=== PATIENT | male | born 1965 | race Two or more races ===

== ENCOUNTER 2021-09-30 19:16 | Emergency (ER) | payer OTHER ==
[~2021-09-30] VITALS: Ht 170.2 cm; Wt 82.0 kg
[2021-09-30 19:46] LABS: BASO # 0.1 x10^3/uL (0.0-0.2); BASO % 2 % (0-3); EOS % 1 % (0-3); HEMATOCRIT 48.1 % (39.0-53.0); HEMOGLOBIN 16.4 g/dL (13.0-17.5); LYMPH # 2.3 x10^3/uL (1.0-4.8); LYMPH % 32 % (24-48); MEAN CORPUSCULAR HEMOGLOBIN 32 pg (25-35); MEAN CORPUSCULAR HGB CONC 34 g/dL (31-37); MEAN CORPUSCULAR VOLUME 94 fL (79-100); MONO # 0.5 x10^3/uL (0.0-1.1); MONO % 8 % (0-9); NEUT # 4.1 x10^3/uL (1.8-7.7); NEUT % 58 % (31-73); PLATELET COUNT 322 x10^3/uL (140-400); RED BLOOD COUNT 5.11 x10^6/uL (4.30-5.70); RED CELL DISTRIBUTION WIDTH 13.7 % (11.5-14.5)
[2021-09-30 19:58] LABS: CALCIUM 9.3 mg/dL (8.5-10.1); GFR 77.6; POTASSIUM 4.2 mmol/L (3.5-5.1)
[2021-09-30] MEDS ORDERED: IV NORMAL SALINE 1000ML BAG 1,000 ML IV ONE (20:00)
[2021-09-30 20:02] LABS: ACETAMIN < 2 mcg/ml (10-30); ETHANOL 166 mg/dL (0-10); SALIC 2.1 mg/dL (2.8-20.0)
[2021-09-30 20:04] LABS: ALBUMIN 4.4 g/dL (3.4-5.0); TOTAL BILIRUBIN 0.7 mg/dL (0.2-1.0); TOTAL PROTEIN 8.6 g/dL (6.4-8.2)
[2021-09-30] MEDS ORDERED: MULTIVIT INFUSN,ADULT 4,VIT K 10 ML, THIAMINE INJ 100 MG, FOLIC ACID INJ 1 MG in IV NOR... IV ONE (20:30)
--- NOTE | 2021-09-30 22:44 | PHYS DOC ---
Past Medical History Past Medical History: Alcoholism, Depression (NACHO CANTU CONVERSION DEVELOPER) Past Surgical History: Other Additional Past Surgical Histo: POOR HISTORIAN (NACHO CANTU CONVERSION DEVELOPER) Smoking Status: Current Every Day Smoker Alcohol Use: Heavy (PEPENACHO CONVERSION DEVELOPER) General Adult EDM: Chief Complaint: WITHDRAWL HPI: HPI: Patient is a 56 year old male with history of alcoholism, depression presenting to the ED today to be evaluated for alcohol withdrawal. Patient was at [facility], he developed withdrawal symptoms and was sent to the ED. He states he drinks he avily and will not give information on how much he drinks and when he last drank. He states he does not want to go back to [facility] he wants to go home. Denies any suicidal homicidal ideations (NACHO CANTU CONVERSION DEVELOPER) Review of Systems: Review of Systems: Constitutional: Denies fever or chills. [] Eyes: Denies change in visual acuity. [] HENT: Denies nasal congestion or sore throat. [] Respiratory: Denies cough or shortness of breath. [] Cardiovascular: Denies chest pain or edema. [] GI: Denies abdominal pain, nausea, vomiting, bloody stools or diarrhea. [] : Denies dysuria. [] Musculoskeletal: Denies back pain or joint pain. [] Integument: Denies rash. [] Neurologic: Denies headache, focal weakness or sensory changes. [] Psychiatric: Reports alcohol use and withdrawal symptoms (NACHO CANTU CONVERSION DEVELOPER) Heart Score: C/O Chest Pain: N/A Risk Factors: Risk Factors: DM, Current or recent (<one month) smoker, HTN, HLP, family history of CAD, obesity. Risk Scores: Score 0 - 3: 2.5% MACE over next 6 weeks - Discharge Home Score 4 - 6: 20.3% MACE over next 6 weeks - Admit for Clinical Observation Score 7 - 10: 72.7% MACE over next 6 weeks - Early Invasive Strategies (NACHO CANTU CONVERSION DEVELOPER) Current Medications: Current Medications Medications (Trade) Dose Ordered Sig/Jarad Start Time Stop Time Status Last Admin Dose Admin Lorazepam (Ativan Inj) 1 mg 1X ONCE 09/30/21 20:00 09/30/21 20:01 DC 09/30/21 20:01 1 MG Multivitamins 10 ml/Thiamine HCl 100 mg/Folic Acid 1 mg/Sodium Chloride 1,011.2 ml @ 1,000.088 mls/hr 1X ONCE 09/30/21 20:30 09/30/21 21:30 DC 09/30/21 20:24 1,000.088 MLS/HR Sodium Chloride 1,000 ml @ 1,000 mls/hr 1X ONCE 09/30/21 20:00 09/30/21 20:59 DC 09/30/21 19:58 1,000 MLS/HR (MUTUNGA,NACHO M CONVERSION DEVELOPER) Allergies: Allergies: Allergies Coded Allergies Type Severity Reaction Last Updated Verified No Known Drug Allergies 09/30/21 No (MUTUNGA,NACHO M CONVERSION DEVELOPER) Physical Exam: PE: Constitutional: Well developed, well nourished, no acute distress, non-toxic appearance. [] HENT: Normocephalic, atraumatic, bilateral external ears normal, oropharynx moist, no oral exudates, nose normal. [] Eyes: PERRLA, EOMI, conjunctiva normal, no discharge. [] Neck: Normal range of motion, no tenderness, supple, no stridor. [] Cardiovascular: Tachycardic Lungs & Thorax: Bilateral breath sounds clear to auscultation [] Abdomen: Bowel sounds normal, soft, no tenderness, no masses, no pulsatile masses. [] Skin: Warm, dry, no erythema, no rash. [] Back: No tenderness, no CVA tenderness. [] Extremities: No tenderness, no cyanosis, no clubbing, ROM intact, no edema. [] Neurologic: Alert and oriented X 3, normal motor function, normal sensory function, no focal deficits noted. [] Psychologic: Flat affect, tremors noted (MUTUNGA,NACHO M CONVERSION DEVELOPER) Current Patient Data: Labs: Laboratory Tests Test 09/30/21 19:30 White Blood Count 7.0 x10^3/uL (4.0-11.0) Red Blood Count 5.11 x10^6/uL (4.30-5.70) Hemoglobin 16.4 g/dL (13.0-17.5) Hematocrit 48.1 % (39.0-53.0) Mean Corpuscular Volume 94 fL (79-100) Mean Corpuscular Hemoglobin 32 pg (25-35) Mean Corpuscular Hemoglobin Concent 34 g/dL (31-37) Red Cell Distribution Width 13.7 % (11.5-14.5) Platelet Count 322 x10^3/uL (140-400) Neutrophils (%) (Auto) 58 % (31-73) Lymphocytes (%) (Auto) 32 % (24-48) Monocytes (%) (Auto) 8 % (0-9) Eosinophils (%) (Auto) 1 % (0-3) Basophils (%) (Auto) 2 % (0-3) Neutrophils # (Auto) 4.1 x10^3/uL (1.8-7.7) Lymphocytes # (Auto) 2.3 x10^3/uL (1.0-4.8) Monocytes # (Auto) 0.5 x10^3/uL (0.0-1.1) Eosinophils # (Auto) 0.0 x10^3/uL (0.0-0.7) Basophils # (Auto) 0.1 x10^3/uL (0.0-0.2) Sodium Level 139 mmol/L (136-145) Potassium Level 4.2 mmol/L (3.5-5.1) Chloride Level 101 mmol/L (98-107) Carbon Dioxide Level 22 mmol/L (21-32) Anion Gap 16 (6-14) H Blood Urea Nitrogen 6 mg/dL (8-26) L Creatinine 1.0 mg/dL (0.7-1.3) Estimated GFR (Cockcroft-Gault) 77.6 BUN/Creatinine Ratio 6 (6-20) Glucose Level 97 mg/dL (70-99) Calcium Level 9.3 mg/dL (8.5-10.1) Total Bilirubin 0.7 mg/dL (0.2-1.0) Aspartate Amino Transferase (AST) 117 U/L (15-37) H Alanine Aminotransferase (ALT) 134 U/L (16-63) H Alkaline Phosphatase 102 U/L (46-116) Total Protein 8.6 g/dL (6.4-8.2) H Albumin 4.4 g/dL (3.4-5.0) Albumin/Globulin Ratio 1.0 (1.0-1.7) Salicylates Level 2.1 mg/dL (2.8-20.0) L Salicylate Last Dose Date Unknown Salicylate Last Dose Time Unknown Acetaminophen Level < 2 mcg/ml (10-30) L Acetaminophen Last Dose Date Unknown Acetaminophen Last Dose Time Unknown Ethyl Alcohol Level 166 mg/dL (0-10) H Laboratory Tests 09/30/21 19:30 Laboratory Tests 09/30/21 19:30 Vital Signs: Vital Signs Date Time Temp Pulse Resp B/P (MAP) Pulse Ox O2 Delivery O2 Flow Rate FiO2 09/30/21 20:26 98 20 141/86 (104) 94 Room Air 09/30/21 19:20 99.0 99.0 (NACHO CANTU APRN) EKG: EKG: [] (NACHO CANTU APRN) Radiology/Procedures: Radiology/Procedures: [] (NACHO CANTU APRN) Course & Med Decision Making: Course & Med Decision Making Pertinent Labs and Imaging studies reviewed. (See chart for details) This a 56-year-old male patient presenting to the ED today from [facility] to be evaluated for alcohol withdrawal. Patient is alert oriented x3, he states he does not want to go back to [facility]. He has slight tremors. He was given a banana bag and Ativan CBC with no acute findings, CMP with AST 117, ALT 134, ALK 102. Alcohol level 166. Patient is clinically sober in the ED, he is up ambulating alert and oriented x4. He refused to go back to [facility]. He was discharged to home (NACHO CANTU CONVERSION DEVELOPER) Course & Med Decision Making Patients Care and treatment plan provided by ER Nurse Practitioner. I was available for consult. Patient's chart reviewed. (JOHNATHON CAO DO) Bess Disclaimer: Bess Disclaimer: This electronic medical record was generated, in whole or in part, using a voice recognition dictation system. (NACHO CANTU APRN) Departure Departure Impression: Primary Impression: Alcohol withdrawal Qualified Codes: F10.239 - Alcohol dependence with withdrawal, unspecified Disposition: HOME / SELF CARE / HOMELESS Condition: STABLE Referrals: UNKNOWN PCP NAME (PCP) please consider getting help for alcohol use at [facility] Patient Instructions: Alcohol Withdrawal Additional Instructions: You were evaluated in the emergency room for alcohol withdrawal. We highly recommend he consider getting help for alcohol use. RSI is available for help with alcohol use NACHO CANTU APRN Sep 30, 2021 22:44 JOHNATHON CAO DO Oct 02, 2021 03:52
[2021-09-30 22:52] VITALS: BP 137/80
== END 2021-09-30 23:10 | disposition home or self-care (01) ==
LOC: ER 19:16
DX: F10.239 Alcohol dependence with withdrawal, unspecified (principal); Y90.6 Blood alcohol level of 120-199 mg/100 ml; F17.200 Nicotine dependence, unspecified, uncomplicated
CPT/HCPCS: 36415; 80053; 80329; 85025; 96361; 96365; 96375; 99284; G0480; J2060; J3411; J3490; J7030; 99285-25